=== PATIENT | female | born 2000 ===

== ENCOUNTER 2024-05-28 16:53 | Outpatient (CLI) | payer OTHER, SELFPAY ==
--- NOTE | ~2024-05-28 | XR_ITS ---
EXAMINATION:XR cervical spine 4-5V DATE: 05/28/2024 17:15 INDICATION: Strain of muscle presenting with neck pain and limited range of motion TECHNIQUE: AP, lateral, lateral swimmers and odontoid views of the cervical spine are provided. COMPARISON: None FINDINGS: There is straightening of the normal cervical lordosis. No spondylolisthesis or facet subluxation. Od ontoid is intact. Normal atlantoaxial interval. Vertebral body heights are normal. Disc spaces are n ormal. Cervical facet and uncovertebral joints are normal. Prevertebral soft tissues are normal. Visu alized upper lungs are clear. IMPRESSION: 1. Straightening of the normal cervical lordosis which could be positional but could also be seen wit h muscle strain. Otherwise normal cervical spine radiographs. Reviewed, dictated and finalized at location B. IMPRESSION: 1. Straightening of the normal cervical lordosis which could be positional but could also be seen with muscle strain. Otherwise normal cervical spine radiogra phs.
== END 2024-05-28 16:54 | disposition home or self-care (01) ==
LOC: MICIMG 16:57
PROVIDERS: PCP Nurse Practitioner; Visit Provider Nurse Practitioner
DX: M40.40 Postural lordosis, site unspecified (principal); S16.1XXD Strain of muscle, fascia and tendon at neck level, subsequent encounter; X58.XXXA Exposure to other specified factors, initial encounter
CPT/HCPCS: 72050